=== PATIENT | female | born 1950 | race Two or more races ===

== ENCOUNTER 2019-01-18 09:46 | Emergency (ER) | payer OTHER, MEDICAID ==
[~2019-01-18] VITALS: Ht 162.6 cm; Wt 72.6 kg
[2019-01-18] MEDS ORDERED: METOPROLOL TART50 M1 ORAL (09:54)
[2019-01-18] MEDS ORDERED: LOSARTAN POTASS50 MG ORAL (09:54)
[2019-01-18] MEDS ORDERED: GEMFIBROZIL600 MG ORAL (09:54)
[2019-01-18] MEDS ORDERED: LEVOTHYROXINE75 MCG ORAL (09:54)
[2019-01-18 10:03] VITALS: BP 160/88
--- NOTE | 2019-01-18 10:05 | NUR ---
ED Nurse Note: pt walked in to ER from home due to lump on lower neck without pain. pt aao x4 and ambulatory. pt reported that it has been a month since lump developed. pt calm and cooperative. skin clean and intact. calm and cooperative. pt is in gown. no acute distress noted.
--- NOTE | 2019-01-18 10:20 | NUR ---
ED Nurse Note: pt is on surveillance system monitor.
[2019-01-18] MEDS ORDERED: Isovue-300 100ml vial INJ PRN (10:30)
--- NOTE | 2019-01-18 10:40 | NUR ---
ED Nurse Note: blood and urine sent to lab. x-ray at bedside.
[2019-01-18 10:50] LABS: BASOPHILS % (AUTO) 1.4 % (0.0-2.0); EOSINOPHILS % (AUTO) 4.6 % (0.0-3.0); HEMATOCRIT 41.6 % (37.0-47.0); LYMPHOCYTES % (AUTO) 36.8 % (20.0-45.0); MEAN CORPUSCULAR VOLUME 91 FL (80-99); MONOCYTES % (AUTO) 8.8 % (1.0-10.0); NEUTROPHILS % (AUTO) 48.3 % (45.0-75.0); PLATELET COUNT 225 K/UL (150-450); RED BLOOD COUNT 4.54 M/UL (4.20-5.40); RED CELL DISTRIBUTION WIDTH 11.5 % (11.6-14.8)
[2019-01-18 10:59] LABS: ANION GAP 8 mmol/L (5-15); BLOOD UREA NITROGEN 20 mg/dL (7-18); CARBON DIOXIDE 26 MMOL/L (21-32); CHLORIDE 108 MMOL/L (98-107); POTASSIUM 4.3 MMOL/L (3.5-5.1); SODIUM 142 MMOL/L (136-145)
[2019-01-18 11:04] LABS: ALANINE AMINOTRANSFERASE 23 U/L (12-78); ALBUMIN 3.5 G/DL (3.4-5.0); ALKALINE PHOSPHATASE 79 U/L (46-116); ASPARTATE AMINO TRANSFERASE 18 U/L (15-37); BILIRUBIN,TOTAL 0.6 MG/DL (0.2-1.0)
--- NOTE | 2019-01-18 11:08 | NUR ---
ED Nurse Note: pt went down for CT scan in stable condition.
--- NOTE | 2019-01-18 11:32 | NUR ---
ED Nurse Note: pt came back from CT scan in stable condition.
--- NOTE | 2019-01-18 12:01 | Diagnostic Imaging Report ---
Indication: Chest pain Comparison: None A single view chest radiograph was obtained. Findings: No definite infiltrate or pulmonary vascular congestion identified. The heart is enlarged. The aorta is mildly enlarged consistent with atherosclerotic vascular disease. The bones are osteopenic. Impression: No acute disease
--- NOTE | 2019-01-18 12:48 | Diagnostic Imaging Report ---
Indication: Left periclavicular, upper chest/lower neck mass. Chest pain. Shortness of breath. Technique: Continuous helical transaxial imaging of the neck and chest was obtained from the skull base to the upper abdomen after intravenous nonionic contrast administration. Coronal 2-D reformats were also obtained. Automatic Exposure Control was utilized. Total Dose length Product (DLP): 1573.[address] Dose Index Volume (CTDIvol): 29.21,19.21 mGy Comparison: none Findings: No masses identified within the chest wall or within the left base of the neck involving the soft tissues. There is some asymmetric fat noted more prominent on the left than the right in this location which may account for the physical exam finding. The underlying structures appear normal. There is no adenopathy. The glands including the submandibular and sublingual glands appear normal. The thyroid is noted and unremarkable. There may be a small focus of calcium in the right thyroid lobe but the thyroid is otherwise unremarkable. The aerodigestive tract appears normal and symmetric. Epiglottis and aryepiglottic folds are normal. Larynx and subglottic airway appear clear. Parotid gland is unremarkable. Skull base structures are unremarkable. Mastoids are clear bilaterally. There is no adenopathy in the area of the axilla. There is no supraclavicular adenopathy identified. No osseous abnormality identified. The lungs are clear except for some minimal posterior basal atelectasis which is a dependent phenomena. Aorta is notable for mild mural calcium consistent with atherosclerotic disease. Heart is unremarkable. IMPRESSION: No mass identified in the area of clinical concern. Mild calcium noted in the right thyroid lobe nonspecific. Atherosclerotic vascular disease. The CT scanner at [facility] is accredited by the [employer] and the scans are performed using dose optimization techniques as appropriate to a performed exam including Automatic Exposure control.
[2019-01-18 13:14] VITALS: BP 150/80
--- NOTE | 2019-01-18 13:17 | NUR ---
[facility] DCD DISCHARGED HOME WITH INSTRUCTION TO FOLLOW UP WITH PMD . PATIENT VERBALIZE UNDERSTANDING OF ACI
--- NOTE | 2019-01-18 14:43 | Emergency Room Report ---
History of Present Illness General Chief Complaint: General Complaint Source: Patient Present Illness HPI 68-year-old female presents ED for evaluation. Referred by her PMD for evaluation of a mass to her chest. States is been there for nearly a month. States that she feels like it is causing her chest pain and shortness of breath. Pain is dull, 6 out of 10, nonradiating. Denies fevers or chills. Denies cough. No other aggravating relieving factors. Denies any other associated symptoms Allergies: Coded Allergies: No Known Allergies (Unverified , 01/18/19) Patient History Past Medical History: HTN Past Surgical History: none Pertinent Family History: none Social History: Denies: smoking, alcohol use, drug use Now: No Immunizations: UTD Reviewed Nursing Documentation: PMH: Agreed; PSxH: Agreed Nursing Documentation-PMH Hx Hypertension: Yes Review of Systems All Other Systems: negative except mentioned in HPI Physical Exam Vital Signs Date Time Temp Pulse Resp B/P (MAP) Pulse Ox O2 Delivery O2 Flow Rate FiO2 01/18/19 09:49 98.2 62 18 160/88 (112) 96 Room Air Sp02 EP Interpretation: reviewed, normal General Appearance: no apparent distress, alert, GCS 15, non-toxic Head: normocephalic, atraumatic Eyes: bilateral eye normal inspection, bilateral eye PERRL ENT: hearing grossly normal, normal pharynx, no angioedema, normal voice Neck: full range of motion, supple/symm/no masses Respiratory: chest non-tender, lungs clear, normal breath sounds, speaking full sentences, other - swelling to L upper chest periclavicular. no induration or erythema. no fluctuance Cardiovascular #1: regular rate, rhythm, no edema Cardiovascular #2: 2+ carotid (R), 2+ carotid (L), 2+ radial (R), 2+ radial (L) , 2+ dorsalis pedis (R), 2+ dorsalis pedis (L) Gastrointestinal: normal bowel sounds, non tender, soft, non-distended, no guarding, no rebound Rectal: deferred Genitourinary: normal inspection, no CVA tenderness Musculoskeletal: back normal, gait/station normal, normal range of motion, non- tender Neurologic: alert, oriented x3, responsive, motor strength/tone normal, sensory intact, speech normal Psychiatric: judgement/insight normal, memory normal, mood/affect normal, no suicidal/homicidal ideation Reflexes: 3+ bicep (R), 3+ bicep (L), 3+ tricep (R), 3+ tricep (L), 3+ knee (R) , 3+ knee (L) Skin: no rash Lymphatic: no adenopathy Medical Decision Making Diagnostic Impression: Primary Impression: Chest wall pain ER Course Hospital Course 68 yo F presents to ED with swelling to chest. c/o pain Differential diagnoses include: Rib fracture, [place]/unstable angina, mass, muscle strain Clinical course Patient placed on stretcher. After initial history and physical I ordered labs , EKG, chest x-ray. CT neck and CT chest labs reviewed- all electrolytes normal, troponins negative, no leukocytosis, hemoglobin/hematocrit stable EKG - NSR, no acute ischemic changes interpreted by me Chest x-ray-no cardiomegaly, no rib fracture, no pneumothorax, no acute process CT of neck and chest define no mass or intrapulmonary extension. there appears to be some asymmetry in fat on the L >> R which could account for her presentation Discussed findings with the patient. We will discharge to home. Safe for discharge for close outpatient follow-up. Provided with copies of CT reports I. I feel this is a highly complex case requiring extensive working including EKG/Rhythm strip, Xray/CT/US, Blood/urine lab work, repeat exams while in ED, and administration of strong opiates/narcotics for pain control, admission to hospital or close patient follow up. Diagnosis - chest wall pain Stable and discharged to home. Instructed to followup with PMD. Return to ED if symptoms recur or worsen my chest wall pain shortness Labs Test 01/18/19 10:30 White Blood Count 5.0 K/UL (4.8-10.8) Red Blood Count 4.54 M/UL (4.20-5.40) Hemoglobin 14.0 G/DL (12.0-16.0) Hematocrit 41.6 % (37.0-47.0) Mean Corpuscular Volume 91 FL (80-99) Mean Corpuscular Hemoglobin 30.9 PG (27.0-31.0) Mean Corpuscular Hemoglobin Concent 33.8 G/DL (32.0-36.0) Red Cell Distribution Width 11.5 % (11.6-14.8) Platelet Count 225 K/UL (150-450) Mean Platelet Volume 7.7 FL (6.5-10.1) Neutrophils (%) (Auto) 48.3 % (45.0-75.0) Lymphocytes (%) (Auto) 36.8 % (20.0-45.0) Monocytes (%) (Auto) 8.8 % (1.0-10.0) Eosinophils (%) (Auto) 4.6 % (0.0-3.0) Basophils (%) (Auto) 1.4 % (0.0-2.0) Sodium Level 142 MMOL/L (136-145) Potassium Level 4.3 MMOL/L (3.5-5.1) Chloride Level 108 MMOL/L (98-107) Carbon Dioxide Level 26 MMOL/L (21-32) Anion Gap 8 mmol/L (5-15) Blood Urea Nitrogen 20 mg/dL (7-18) Creatinine 1.0 MG/DL (0.55-1.30) Estimat Glomerular Filtration Rate 55.0 mL/min (>60) Glucose Level 126 MG/DL (74-106) Calcium Level 9.0 MG/DL (8.5-10.1) Total Bilirubin 0.6 MG/DL (0.2-1.0) Aspartate Amino Transf (AST/SGOT) 18 U/L (15-37) Alanine Aminotransferase (ALT/SGPT) 23 U/L (12-78) Alkaline Phosphatase 79 U/L (46-116) Troponin I 0.014 ng/mL (0.000-0.056) Total Protein 7.0 G/DL (6.4-8.2) Albumin 3.5 G/DL (3.4-5.0) Globulin 3.5 g/dL Albumin/Globulin Ratio 1.0 (1.0-2.7) EKG Diagnostic Results Rate: normal Rhythm: NSR ST Segments: no acute changes ASA given to the pt in ED: No Rhythm Strip Diag. Results EP Interpretation: yes Rhythm: NSR, no PVC's, no ectopy Chest X-Ray Diagnostic Results Chest X-Ray Diagnostic Results : Chest X-Ray Ordered: Yes # of Views/Limited/Complete: 1 View Indication: Chest Pain EP Interpretation: Yes Interpretation: no consolidation, no effusion, no pneumothorax, no acute cardiopulmonary disease Impression: No acute disease Electronically Signed by: Electronically signed by Serafin Phillips MD CT/MRI/US Diagnostic Results CT/MRI/US Diagnostic Results #1: Imaging Test Ordered: CT neck Impression Comparison: none Findings: No masses identified within the chest wall or within the left base of the neck involving the soft tissues. There is some asymmetric fat noted more prominent on the left than the right in this location which may account for the physical exam finding. The underlying structures appear normal. There is no adenopathy. The glands including the submandibular and sublingual glands appear normal. The thyroid is noted and unremarkable. There may be a small focus of calcium in the right thyroid lobe but the thyroid is otherwise unremarkable. The aerodigestive tract appears normal and symmetric. Epiglottis and aryepiglottic folds are normal. Larynx and subglottic airway appear clear. Parotid gland is unremarkable. Skull base structures are unremarkable. Mastoids are clear bilaterally. There is no adenopathy in the area of the axilla. There is no supraclavicular adenopathy identified. No osseous abnormality identified. The lungs are clear except for some minimal posterior basal atelectasis which is a dependent phenomena. Aorta is notable for mild mural calcium consistent with atherosclerotic disease. Heart is unremarkable. CT/MRI/US Diagnostic Results #2: Imaging Test Ordered: CT Chest Impression Comparison: none Findings: No masses identified within the chest wall or within the left base of the neck involving the soft tissues. There is some asymmetric fat noted more prominent on the left than the right in this location which may account for the physical exam finding. The underlying structures appear normal. There is no adenopathy. The glands including the submandibular and sublingual glands appear normal. The thyroid is noted and unremarkable. There may be a small focus of calcium in the right thyroid lobe but the thyroid is otherwise unremarkable. The aerodigestive tract appears normal and symmetric. Epiglottis and aryepiglottic folds are normal. Larynx and subglottic airway appear clear. Parotid gland is unremarkable. Skull base structures are unremarkable. Mastoids are clear bilaterally. There is no adenopathy in the area of the axilla. There is no supraclavicular adenopathy identified. No osseous abnormality identified. The lungs are clear except for some minimal posterior basal atelectasis which is a dependent phenomena. Aorta is notable for mild mural calcium consistent with atherosclerotic disease. Heart is unremarkable. Last Vital Signs Date Time Temp Pulse Resp B/P (MAP) Pulse Ox O2 Delivery O2 Flow Rate FiO2 01/18/19 13:14 98.0 66 16 150/80 97 Room Air Disposition: HOME, SELF-CARE Condition: Stable Patient Instructions: Nonspecific Chest Pain, [id number] Serafin Phillips MD Jan 18, 2019 14:43
== END 2019-01-18 13:18 | disposition home or self-care (01) ==
LOC: EMR 10:30
DX: R07.89 Other chest pain (principal); R22.2 Localized swelling, mass and lump, trunk; I10 Essential (primary) hypertension
CPT/HCPCS: 36415; 70491; 71045; 71260; 80053; 84484; 85025; 93005; 99284; Q9967